=== PATIENT | female | born 1990 | race American Indian/Alaskan Native ===

== ENCOUNTER 2019-01-09 06:02 | Emergency (ER) | payer BC ==
[2019-01-09 06:42] LABS: Basophils # (Auto) 0.1 K/mm3 (0.0-0.1); Eosinophils # (Auto) 0.1 K/mm3 (0.0-0.4); Hematocrit 42.3 % (30.3-42.9); Hemoglobin 14.4 gm/dl (10.1-14.3); Lymphocytes # (Auto) 2.8 K/mm3 (1.2-5.4); Lymphocytes % (Auto) 23.5 % (13.4-35.0); Mean Corpuscular HGB Conc 34 % (30-34); Mean Corpuscular Volume 92 fl (79-97); Monocytes # (Auto) 0.6 K/mm3 (0.0-0.8); Monocytes % (Auto) 5.2 % (0.0-7.3); Platelet Count 440 K/mm3 (140-440); Red Blood Count 4.62 M/mm3 (3.65-5.03); Red Cell Distribution Width 13.5 % (13.2-15.2)
[2019-01-09] MEDS ORDERED: ZOFRAN IV ONE ×2 (06:52→08:10)
[2019-01-09] MEDS ORDERED: NACL 0.9% 1000 ML 1,000 ML IV ONE ×2 (06:52→09:06)
[2019-01-09] MEDS ORDERED: DILAUDID IV ONE ×2 (06:52→08:10)
--- NOTE | 2019-01-09 06:54 | Emergency Department Report ---
ED Abdominal Pain HPI - General Chief Complaint: Abdominal Pain Stated Complaint: ABD PAIN/EMESIS Time Seen by Provider: 01/09/19 06:48 Source: patient Mode of arrival: Ambulatory Limitations: No Limitations - History of Present Illness Initial Comments: Alia herman is a 28-year-old female presents to emergency room with complaints of abdominal pain and nausea vomiting. Patient states that her symptoms started at 11 PM last night. Patient denies fever and chills. Patient denies diarrhea. Patient denies possibility of . Patient states she has not been sexually active for several months. Patient states the abdominal pain as a 10 out of 10. Patient states the pain is in her entire abdomen. Patient States the pain is nonradiating. Patient states the pain is better with rest. Patient states the pain is worse with palpation and movement. MD Complaint: abdominal pain -: Sudden Location: diffuse Radiation: none Migration to: no migration Severity: severe Severity scale (0 -10): 10 Quality: stabbing Consistency: constant Associated Symptoms: nausea, vomiting. denies: diarrhea, fever, chills, constipation, dysuria, hematemesis, hematochezia, melena, hematuria, syncope - Related Data LMP (females 10-50): 3 weeks Previous Rx's Medication Instructions Recorded Last Taken Type Nitrofurantoin Monohyd/M-Cryst 100 mg PO BID #14 capsule 07/16/18 Unknown Rx [Macrobid 100 mg Capsule] Ondansetron [Zofran Odt] 4 mg PO Q6HR #20 tab.rapdis 07/16/18 Unknown Rx Promethazine [Phenergan] 25 mg PO Q8HR PRN #12 tab 01/09/19 Unknown Rx Allergies Allergy/AdvReac Type Severity Reaction Status Date / Time No Known Allergies Allergy Verified 07/16/18 07:22 ED Review of Systems ROS: Stated complaint: ABD PAIN/EMESIS Other details as noted in HPI Constitutional: denies: chills, fever Eyes: denies: eye pain, eye discharge, vision change ENT: denies: ear pain, throat pain Respiratory: denies: cough, shortness of breath, wheezing Cardiovascular: denies: chest pain, palpitations Endocrine: no symptoms reported Gastrointestinal: abdominal pain, nausea, vomiting. denies: diarrhea Genitourinary: denies: urgency, dysuria, discharge Musculoskeletal: denies: back pain, joint swelling, arthralgia Skin: denies: rash, lesions Neurological: denies: headache, weakness, paresthesias Psychiatric: denies: anxiety, depression Hematological/Lymphatic: denies: easy bleeding, easy bruising ED Past Medical Hx - Past Medical History Previous Medical History?: No - Surgical History Past Surgical History?: No - Family History Family history: no significant - Social History Smoking Status: Never Smoker Substance Use Type: Alcohol - Medications Home Medications: Home Medications Medication Instructions Recorded Confirmed Last Taken Type Nitrofurantoin Monohyd/M-Cryst 100 mg PO BID #14 capsule 07/16/18 Unknown Rx [Macrobid 100 mg Capsule] Ondansetron [Zofran Odt] 4 mg PO Q6HR #20 tab.rapdis 07/16/18 Unknown Rx Promethazine [Phenergan] 25 mg PO Q8HR PRN #12 tab 01/09/19 Unknown Rx ED Physical Exam - General Limitations: No Limitations General appearance: alert, in no apparent distress - Head Head exam: Present: atraumatic, normocephalic - Eye Eye exam: Present: normal appearance - ENT ENT exam: Present: mucous membranes moist - Neck Neck exam: Present: normal inspection - Respiratory Respiratory exam: Present: normal lung sounds bilaterally. Absent: respiratory distress - Cardiovascular Cardiovascular Exam: Present: regular rate, normal rhythm. Absent: systolic murmur, diastolic murmur, rubs, gallop - GI/Abdominal GI/Abdominal exam: Present: soft, tenderness (generalized tenderness), normal bowel sounds - Rectal Rectal exam: Present: deferred - Extremities Exam Extremities exam: Present: normal inspection - Back Exam Back exam: Present: normal inspection - Neurological Exam Neurological exam: Present: alert, oriented X3 - Psychiatric Psychiatric exam: Present: normal affect, normal mood - Skin Skin exam: Present: warm, dry, intact, normal color. Absent: rash ED Course Vital Signs 01/09/19 01/09/19 01/09/19 06:20 06:50 07:00 Temperature 97.4 F L Pulse Rate 71 75 Respiratory 20 26 H 16 Rate Blood Pressure 127/87 Blood Pressure [Right] O2 Sat by Pulse 100 Oximetry 01/09/19 01/09/19 01/09/19 07:09 07:15 07:40 Temperature 97.5 F L Pulse Rate Respiratory 19 19 Rate Blood Pressure Blood Pressure 117/86 [Right] O2 Sat by Pulse 98 98 Oximetry 01/09/19 01/09/19 01/09/19 07:41 08:00 08:30 Temperature Pulse Rate 72 64 61 Respiratory 15 15 10 L Rate Blood Pressure 117/86 132/84 132/100 Blood Pressure [Right] O2 Sat by Pulse Oximetry 01/09/19 01/09/19 01/09/19 09:00 09:30 10:01 Temperature Pulse Rate 56 L 57 L 71 Respiratory 10 L 11 L 13 Rate Blood Pressure 121/68 140/97 120/77 Blood Pressure [Right] O2 Sat by Pulse Oximetry - Reevaluation(s) Reevaluation #1: Discussed CT results with patient. Discussed all results with patient. Patient will be given Toradol and we will try a by mouth challenge. 01/09/19 09:04 Patient tolerated by mouth challenge. Patient is tolerating fluids without nausea or vomiting. 01/09/19 09:50 Discussed all results with patient. Patient still pain free and has not had any nausea or vomiting. Discussed all discharge instructions the patient. Discussed follow-up instructions patient. Patient voiced understanding of all instructions. 01/09/19 09:56 ED Medical Decision Making - Lab Data Result diagrams: 01/09/19 06:19 01/09/19 06:19 - Radiology Data Radiology results: report reviewed CT ABDOMEN AND PELVIS WITHOUT CONTRAST INDICATION: Nausea, vomiting, abdominal pain. COMPARISON: None similar. FINDINGS: Noncontrast abdomen and pelvis CT performed. LUNG BASES: Slight nonspecific air filled distal esophageal prominence. ABDOMEN: Please note that sensitivity to detect small visceral lesions is limited due to the absence of intravenous or oral contrast. Left hepatic lobe tip touches the spleen in the left upper quadrant. Right hepatic lobe 17.3 cm in midclavicular length. Otherwise grossly unremarkable unenhanced liver, spleen, gallbladder, pancreas, adrenals, aorta and IVC. No hydronephrosis. Possibly 2 or 3 tiny nonobstructing left renal calculi, 2 at the upper pole as on axial series 2, images 39 and 42 measuring up to 2 mm while a third tiny 1 mm calcification noted more inferiorly as on axial image 52. Nonopacified GI tract evaluation limited, though grossly nonobstructive. Normal appendix. Decompressed colon. No ascites or definite size significant adenopathy. PELVIS: Grossly unremarkable uterus tilted towards the right hemipelvis, adnexa, rectosigmoid and suboptimally distended, nonopacified urinary bladder. No free fluid or definite significant adenopathy. Unremarkable bones. CONCLUSION: No acute CT abnormality on this unenhanced exam with tiny nonobstructing left nephrolithiasis and slightly prominent liver incidentally noted, as described. Please correlate. - Medical Decision Making Patient is a 28-year-old female that presents emergency room with complaints of nausea vomiting abdominal pain. Patient's symptoms were managed with treatment. Patient tolerated by mouth challenge. Patient had a CT done in the ER and it showed a nonobstructing stone. I believe that the kidney stone is not causing the patient's symptoms were rather patient has gastroenteritis. Patient's labs unremarkable except for a mildly elevated WBC which is most likely secondary to vomiting. Patient stable for discharge. Patient will be discharged home. Patient given discharge instructions. - Differential Diagnosis gastroenteritis. Nausea vomiting. Abdominal pain. Critical care attestation.: If time is entered above; I have spent that time in minutes in the direct care of this critically ill patient, excluding procedure time. ED Disposition Clinical Impression: Renal stone, Gastroenteritis Abdominal pain Qualifiers: Abdominal location: generalized Qualified Code(s): R10.84 - Generalized abdominal pain Nausea & vomiting Qualifiers: Vomiting type: unspecified Vomiting Intractability: non-intractable Qualified Code(s): R11.2 - Nausea with vomiting, unspecified Disposition: DC-01 TO HOME OR SELFCARE Is pt being admited?: No Does the pt Need Aspirin: No Condition: Stable Instructions: Gastroenteritis (ED), Acute Nausea and Vomiting (ED), Abdominal Pain (ED) Additional Instructions: Patient to follow-up with primary care in 2-3 days. Patient to take Tylenol or ibuprofen when necessary for pain. Patient to return to ER if condition worsens. Patient to take meds as directed. Patient to increase water. Patient to rest. Patient to eat a BRAT diet. Patient to continue all meds. Prescriptions: Promethazine [Phenergan] 25 mg PO Q8HR PRN #12 tab PRN Reason: Nausea Referrals: ANNY CALLAWAY MD [Primary Care Provider] - 2-3 Days Time of Disposition: 09:53
[2019-01-09 07:04] LABS: Alanine Aminotransferase 34 units/L (7-56); Albumin 4.8 g/dL (3.9-5); BUN/Creatinine Ratio 13; Blood Urea Nitrogen 9 mg/dL (7-17); Calcium 9.5 mg/dL (8.4-10.2); Hemolysis Index 5
[2019-01-09 08:47] LABS: Bilirubin,Urine NEG (Negative); Blood,Urine SM (Negative); Color,Urine Yellow (Yellow); Mucus,Urine 2+ /HPF; Protein,Urine <15 mg/dL mg/dL (Negative); Urobilinogen,Urine < 2.0 mg/dL (<2.0)
--- NOTE | 2019-01-09 08:53 | Cat Scan Report ---
CT ABDOMEN AND PELVIS WITHOUT CONTRAST INDICATION: Nausea, vomiting, abdominal pain. COMPARISON: None similar. FINDINGS: Noncontrast abdomen and pelvis CT performed. LUNG BASES: Slight nonspecific air filled distal esophageal prominence. ABDOMEN: Please note that sensitivity to detect small visceral lesions is limited due to the absence of intravenous or oral contrast. Left hepatic lobe tip touches the spleen in the left upper quadrant. Right hepatic lobe 17.3 cm in midclavicular length. Otherwise grossly unremarkable unenhanced liver, spleen, gallbladder, pancreas, adrenals, aorta and IVC. No hydronephrosis. Possibly 2 or 3 tiny nonobstructing left renal calculi, 2 at the upper pole as on axial series 2, images 39 and 42 measuring up to 2 mm while a third tiny 1 mm calcification noted more inferiorly as on axial image 52. Nonopacified GI tract evaluation limited, though grossly nonobstructive. Normal appendix. Decompressed colon. No ascites or definite size significant adenopathy. PELVIS: Grossly unremarkable uterus tilted towards the right hemipelvis, adnexa, rectosigmoid and suboptimally distended, nonopacified urinary bladder. No free fluid or definite significant adenopathy. Unremarkable bones. CONCLUSION: No acute CT abnormality on this unenhanced exam with tiny nonobstructing left nephrolithiasis and slightly prominent liver incidentally noted, as described. Please correlate. Thank you for the opportunity to participate in this patient's care.
[2019-01-09] MEDS ORDERED: TORADOL IV ONE (09:17)
[2019-01-09 10:05] VITALS: BP 120/77
== END 2019-01-09 10:33 | disposition home or self-care (01) ==
LOC: ED 06:02
DX: K52.9 Noninfective gastroenteritis and colitis, unspecified (principal); N20.0 Calculus of kidney
CPT/HCPCS: 36415; 74176; 80053; 81001; 84703; 85025; 96361; 96374; 96375; 96376; 99284; J1170; J1885; J2405; J7030